=== PATIENT | female | born 1980 | race Native Hawaiian/Other Pacific Islander ===

== ENCOUNTER 2016-12-30 19:28 | Emergency (ER) | payer OTHER ==
[~2016-12-30] VITALS: Ht 157.5 cm; Wt 142.9 kg
[2016-12-30 19:39] VITALS: BP 168/69; TEMP 98.5
[2016-12-30 20:33] LABS: PLATELET COUNT 237 K/uL (152-353)
== END 2016-12-30 21:20 | disposition home or self-care (01) ==
LOC: ED 19:28
DX: N20.1 Calculus of ureter (principal); Z33.1 Pregnant state, incidental
CPT/HCPCS: 81000; 85027; 96372; 99284; J0696

== ENCOUNTER 2017-11-21 14:52 | Outpatient (CLI) | payer OTHER | END 2017-11-21 23:51 | disposition home or self-care (01) | LOC: LAB 14:52 | DX: R30.0 Dysuria (principal); N30.01 Acute cystitis with hematuria | CPT/HCPCS: 87077; 87086; 87088; 87185; 87186 ==

== ENCOUNTER 2017-11-27 19:36 | Emergency (ER) | payer OTHER ==
[~2017-11-27] VITALS: Ht 152.4 cm; Wt 138.3 kg
[2017-11-27] MEDS ORDERED: BREO ELLIPTA 101 INH IN (20:09)
[2017-11-27] MEDS ORDERED: ALBU90AE13 INH (20:09)
[2017-11-27] MEDS ORDERED: CELEXA10 MG PO (20:10)
[2017-11-27] MEDS ORDERED: HYDR10TA47A PO (20:10)
[2017-11-27] MEDS ORDERED: CARI350T15 PO (20:11)
[2017-11-27] MEDS ORDERED: GABA300C2 PO (20:11)
[2017-11-27 21:45] VITALS: BP 159/67; TEMP 97.7
== END 2017-11-27 21:45 | disposition home or self-care (01) ==
LOC: ED 19:36
DX: J45.901 Unspecified asthma with (acute) exacerbation (principal)
CPT/HCPCS: 94664; 96372; 99283; J2930

== ENCOUNTER 2018-08-22 05:58 | Outpatient (CLI) | payer OTHER ==
[~2018-08-22 05:58] MED LIST: ALBU90AE13 INH; BREO ELLIPTA 101 INH IN; CARI350T15 PO; CELEXA10 MG PO; GABA300C2 PO; HYDR10TA47A PO
[2018-08-22 06:22] LABS: PLATELET COUNT 280 K/uL (152-353)
[2018-08-22 06:57] LABS: POTASSIUM 4.6 mmol/L (3.6-5.2)
== END 2018-08-22 23:42 | disposition home or self-care (01) ==
LOC: LABW 05:58
PROVIDERS: Physician Assistant
DX: J44.1 Chronic obstructive pulmonary disease with (acute) exacerbation (principal); Z68.43 Body mass index [BMI] 50.0-59.9, adult; R06.02 Shortness of breath
CPT/HCPCS: 36415; 80053; 80061; 82306; 82607; 83036; 84439; 84443; 85027

== ENCOUNTER 2018-10-30 07:45 | Outpatient (CLI) | payer OTHER | END 2018-10-30 19:42 | disposition home or self-care (01) | LOC: RESP 07:45 | DX: R06.02 Shortness of breath (principal) ==

== ENCOUNTER 2019-07-22 22:50 | Emergency (ER) | payer OTHER ==
[~2019-07-22] VITALS: Ht 152.4 cm; Wt 138.3 kg
[2019-07-22 23:45] VITALS: BP 145/79; TEMP 98.4
== END 2019-07-22 23:45 | disposition home or self-care (01) ==
LOC: ED 22:50
DX: L03.115 Cellulitis of right lower limb (principal)
CPT/HCPCS: 99282

== ENCOUNTER 2019-10-29 14:04 | Outpatient (CLI) | payer OTHER ==
[2019-10-29 14:32] LABS: PLATELET COUNT 211 K/uL (152-353)
== END 2019-10-29 21:33 | disposition home or self-care (01) ==
LOC: LABW 14:04
PROVIDERS: Internal Medicine Sleep Medicine
DX: J44.9 Chronic obstructive pulmonary disease, unspecified (principal)
CPT/HCPCS: 36415; 82103; 82785; 85027; 86003

== ENCOUNTER 2019-12-11 13:48 | Outpatient (CLI) | payer OTHER | END 2019-12-11 19:47 | disposition home or self-care (01) | LOC: RESP 13:48 | DX: J44.9 Chronic obstructive pulmonary disease, unspecified (principal) ==

== ENCOUNTER 2020-03-04 08:00 | Outpatient (CLI) | payer OTHER ==
[2020-03-04 08:21] LABS: PLATELET COUNT 247 K/uL (152-353)
[2020-03-04 08:47] LABS: POTASSIUM 4.2 mmol/L (3.6-5.2)
== END 2020-03-04 23:19 | disposition home or self-care (01) ==
LOC: LABW 08:00
PROVIDERS: Family Medicine
DX: I10 Essential (primary) hypertension (principal); J44.9 Chronic obstructive pulmonary disease, unspecified; F32.9 Major depressive disorder, single episode, unspecified; E78.00 Pure hypercholesterolemia, unspecified; F41.9 Anxiety disorder, unspecified; R06.02 Shortness of breath; E66.01 Morbid (severe) obesity due to excess calories
CPT/HCPCS: 36415; 80053; 80061; 82306; 84439; 84443; 84550; 85027

== ENCOUNTER 2020-12-02 15:37 | Outpatient (CLI) | payer OTHER | END 2020-12-02 23:42 | disposition home or self-care (01) | LOC: CT 15:37 | PROVIDERS: ATTEND Family Medicine | DX: H66.93 Otitis media, unspecified, bilateral (principal); H60.91 Unspecified otitis externa, right ear; J01.90 Acute sinusitis, unspecified; G47.00 Insomnia, unspecified ==

== ENCOUNTER 2021-01-17 15:13 | Outpatient (CLI) | payer OTHER | END 2021-01-17 22:47 | disposition home or self-care (01) | LOC: RAD 15:13 | PROVIDERS: ATTEND Family Medicine | DX: M54.42 Lumbago with sciatica, left side (principal); M25.552 Pain in left hip ==

== ENCOUNTER 2021-10-06 13:48 | Outpatient (CLI) | payer OTHER ==
[2021-10-06 14:27] LABS: PLATELET COUNT 219 K/uL (152-353)
[2021-10-06 14:41] LABS: POTASSIUM 4.4 mmol/L (3.6-5.2)
== END 2021-10-06 19:15 | disposition home or self-care (01) ==
LOC: RESP 13:48
PROVIDERS: ATTEND Family Medicine
DX: R00.2 Palpitations (principal); I10 Essential (primary) hypertension; E78.00 Pure hypercholesterolemia, unspecified; J44.9 Chronic obstructive pulmonary disease, unspecified; G89.4 Chronic pain syndrome; E55.9 Vitamin D deficiency, unspecified
CPT/HCPCS: 36415; 80053; 80061; 81000; 82306; 83735; 84439; 84443; 84550; 85027; 93005

== ENCOUNTER 2021-11-17 13:32 | Outpatient (CLI) | payer OTHER | END 2021-11-17 18:57 | disposition home or self-care (01) | LOC: RESP 13:32 | PROVIDERS: ATTEND Nurse Practitioner Family | DX: J44.9 Chronic obstructive pulmonary disease, unspecified (principal); D64.9 Anemia, unspecified | CPT/HCPCS: 36415; 82728; 83540; 83550 ==

== ENCOUNTER 2022-04-28 11:24 | Outpatient (CLI) | payer OTHER ==
[2022-04-28 11:43] LABS: PLATELET COUNT 212 K/uL (152-353)
[2022-04-28 12:59] LABS: POTASSIUM 3.5 mmol/L (3.6-5.2)
== END 2022-04-28 21:35 | disposition home or self-care (01) ==
LOC: LABW 11:24
PROVIDERS: ATTEND Family Medicine
DX: D64.89 Other specified anemias (principal); J45.909 Unspecified asthma, uncomplicated; I10 Essential (primary) hypertension; R60.0 Localized edema; G89.4 Chronic pain syndrome; E55.9 Vitamin D deficiency, unspecified; R53.83 Other fatigue; E79.0 Hyperuricemia without signs of inflammatory arthritis and tophaceous disease
CPT/HCPCS: 36415; 80053; 80061; 82306; 84439; 84443; 84550; 85027

== ENCOUNTER 2022-05-05 16:01 | Outpatient (CLI) | payer OTHER | END 2022-05-05 18:54 | disposition home or self-care (01) | LOC: CT 16:01 | PROVIDERS: ATTEND Family Medicine | DX: D64.89 Other specified anemias (principal); J45.909 Unspecified asthma, uncomplicated; I10 Essential (primary) hypertension; R60.0 Localized edema; G89.4 Chronic pain syndrome; E55.9 Vitamin D deficiency, unspecified; R53.83 Other fatigue; E79.0 Hyperuricemia without signs of inflammatory arthritis and tophaceous disease | CPT/HCPCS: 81002 ==

== ENCOUNTER 2022-05-25 09:26 | Outpatient (CLI) | payer OTHER | END 2022-05-25 18:58 | disposition home or self-care (01) | LOC: US 09:26 | PROVIDERS: ATTEND Family Medicine | DX: R10.2 Pelvic and perineal pain (principal) ==

== ENCOUNTER 2022-05-31 10:54 | Outpatient (CLI) | payer OTHER | END 2022-05-31 19:35 | disposition home or self-care (01) | LOC: CT 10:54 | PROVIDERS: ATTEND Family Medicine | DX: R10.9 Unspecified abdominal pain (principal); R93.89 Abnormal findings on diagnostic imaging of other specified body structures | CPT/HCPCS: 36415; 82565; 84520; Q9963 ==

== ENCOUNTER 2023-01-12 12:38 | Outpatient (CLI) | payer OTHER | END 2023-01-12 19:29 | disposition home or self-care (01) | LOC: RAD 12:38 | PROVIDERS: ATTEND Internal Medicine Sleep Medicine | DX: J41.0 Simple chronic bronchitis (principal) ==